=== PATIENT | female | born 1975 | race Caucasian/White ===

== ENCOUNTER 2018-04-24 22:23 | Emergency (ER) | payer OTHER ==
[~2018-04-24] VITALS: Ht 167.6 cm; Wt 86.2 kg
[~2018-04-24 22:23] MED LIST: CELEXA; GLUCOTROL; METFORMIN; NORFLEX100 MG PO; PERCOCET 5-3251 EACH PO; ZOCOR
[2018-04-24] MEDS ORDERED: PREDNISONE 20 M20 MG PO (22:51)
[2018-04-24 23:03] VITALS: BP 133/78
== END 2018-04-24 23:04 | disposition home or self-care (01) ==
LOC: M.ERS 22:23
DX: M25.512 Pain in left shoulder (principal); E11.9 Type 2 diabetes mellitus without complications; E78.00 Pure hypercholesterolemia, unspecified; F17.200 Nicotine dependence, unspecified, uncomplicated; Z88.0 Allergy status to penicillin; Z88.5 Allergy status to narcotic agent; Z88.8 Allergy status to other drugs, medicaments and biological substances

== ENCOUNTER 2020-04-01 15:07 | Emergency (ER) | payer OTHER ==
[~2020-04-01] VITALS: Ht 167.6 cm; Wt 97.5 kg
[~2020-04-01 15:07] MED LIST changes: +PREDNISONE 20 M20 MG PO
[2020-04-01] MEDS ORDERED: INSULIN (15:26)
[2020-04-01] MEDS ORDERED: GLUCOPHAGE1000 MG PO (15:26)
[2020-04-01] MEDS ORDERED: LIPITOR 20 MG T20 M1 PO (15:27)
[2020-04-01] MEDS ORDERED: CITALOPRAM HBR40 MG PO (15:27)
[2020-04-01] MEDS ORDERED: BASAGLAR K100 UNIT/1 SUBQ (15:33)
[2020-04-01 16:50] LABS: ABSOLUTE BASOPHILS 0.2 thou/uL (0.0-0.2); ABSOLUTE EOSINOPHILS 0.3 thou/uL (0.0-0.7); ABSOLUTE LYMPHOCYTES 4.6 thou/uL (0.8-5.3); ABSOLUTE MONOCYTES 0.9 thou/uL (0.0-1.2); ABSOLUTE NEUTROPHILS 7.3 thou/uL (1.6-8.1); BASOPHILS 1.2 %; HEMATOCRIT 46.2 % (37.0-47.0); HEMOGLOBIN 15.7 gm/dL (12.0-15.0); LYMPHOCYTES 34.5 %; MCH 29.5 pg (26.0-34.0); MCHC 33.9 g/dL (28.0-37.0); MCV 86.8 fL (80.0-100.0); MPV 8.4 fl. (7.2-11.1); NUCLEATED RBCS 0 /100WBC; PLATELET COUNT* 323 thou/uL (150-400); POLYS 55.3 %; RBC 5.32 mil/uL (4.20-5.00); WBC 13.2 thou/uL (4.0-11.0)
[2020-04-01 16:59] LABS: CALCIUM 9.9 mg/dL (8.5-10.1); CREATININE 0.6 mg/dL (0.6-1.3); POTASSIUM 3.9 mmol/L (3.5-5.1)
[2020-04-01 17:03] LABS: ALBUMIN 3.7 g/dL (3.4-5.0); TOTAL BILIRUBIN 0.2 mg/dL (<0.1-1.0); TOTAL PROTEIN 6.9 g/dL (6.4-8.2)
[2020-04-01 18:55] LABS: INFLUENZA A ANTIGEN Negative (Negative); INFLUENZA B ANTIGEN Negative (Negative)
[2020-04-01] MEDS ORDERED: TESSALON PERLE100 MG PO (19:15)
[2020-04-01] MEDS ORDERED: DOXYCYCLINE 10100 MG PO (19:15)
[2020-04-01] MEDS ORDERED: VENTOLIN HFA 1818 GM INH (19:15)
[2020-04-01 19:22] VITALS: BP 104/74
--- NOTE | 2020-04-02 11:31 | EKG ---
[place] [address] ELECTROCARDIOGRAM REPORT Name: ASTON DC Room: [facility]#: [id number] Admission: 04/01/20 Attend Phys: Discharge: 04/01/20 Date of : 75 Date of Service: 04/01/20 1625 Report #: [id number] THIS REPORT FOR: //name// [facility] ED Test Date: 2020-04-01 Test Time: 16:25:42 Pat Name: ASTON DC Department: Room: Gender: [employer]: GÓMEZ : 1975 Requested By: Padma Burton Order Number: [id number] : Naresh Storey Measurements Intervals [place] Rate: 76 P: 42 MS: 149 QRS: 43 QRSD: 78 T: 37 QT: 376 QTc: 423 Interpretive Statements Sinus rhythm No previous ECG available for comparison Electronically Signed On 04-02-2020 11:30:56 [employer]LECTRON [employer] by Naresh Storey [email or web address] <ELECTRONICALLY SIGNED> By: Naresh Storey MD, [facility] 04/02/20 1130 1625 1625 Naresh Storey MD, FACC /EPI
== END 2020-04-01 19:22 | disposition home or self-care (01) ==
LOC: M.ERS 15:07
PROVIDERS: Nurse Practitioner Family
DX: E11.65 Type 2 diabetes mellitus with hyperglycemia (principal); J12.9 Viral pneumonia, unspecified; Z20.822 Contact with and (suspected) exposure to COVID-19; E78.00 Pure hypercholesterolemia, unspecified; Z88.5 Allergy status to narcotic agent; Z88.0 Allergy status to penicillin; Z88.6 Allergy status to analgesic agent; Z79.4 Long term (current) use of insulin